=== PATIENT | female | born 1960 | race Two or more races ===

== ENCOUNTER → 2018-02-09 | Emergency (ER) | payer OTHER ==
[~2018-02-09] VITALS: Ht 149.9 cm; Wt 93.9 kg
[~2018-02-09] MED LIST: AVALIDE 150-12.1 TA1; AVAPRO75 MG; CIPRO500 MG PO; CYCLOBENZAPRINE10 MG PO; DICLOFENAC POTA50 MG PO; DIOVAN HCT 160-1 TA1; KETO10TA2 PO; MEDROLPACK PO; METRONIDAZOLE500 MG PO; NORFLEX100MG PO; OSEL75CA PO; PREMARIN1.25 MG; PROTONIX40 MG PO; SYNTHROID300 MCG; SYNTHROID50 MCG
== END | disposition home or self-care (01) ==
LOC: ER 11:39
DX: S80.01XA Contusion of right knee, initial encounter (principal); S40.011A Contusion of right shoulder, initial encounter; S30.0XXA Contusion of lower back and pelvis, initial encounter; W18.39XA Other fall on same level, initial encounter; Y93.89 Activity, other specified; Y92.098 Other place in other non-institutional residence as the place of occurrence of the external cause; Y99.8 Other external cause status

== ENCOUNTER 2018-06-27 09:10 | Emergency (ER) | payer OTHER ==
[~2018-06-27] VITALS: Ht 154.9 cm; Wt 95.3 kg
== END 2018-06-27 13:15 | disposition home or self-care (01) ==
LOC: ER 09:10
DX: R07.89 Other chest pain (principal); I10 Essential (primary) hypertension; R51 Headache

== ENCOUNTER 2018-11-28 01:44 | Emergency (ER) | payer OTHER ==
[~2018-11-28] VITALS: Ht 154.9 cm; Wt 97.5 kg
[2018-11-28] MEDS ORDERED: INTESTINEX680 M1 PO (08:57)
[2018-11-28] MEDS ORDERED: ZANTAC150 MG PO (08:57)
== END 2018-11-28 10:33 | disposition home or self-care (01) ==
LOC: ER 01:44
DX: K52.89 Other specified noninfective gastroenteritis and colitis (principal)

== ENCOUNTER 2020-07-22 18:24 | Emergency (ER) | payer OTHER ==
[~2020-07-22] VITALS: Ht 154.9 cm; Wt 101.6 kg
[~2020-07-22 18:24] MED LIST changes: +INTESTINEX680 M1 PO; +ZANTAC150 MG PO
[2020-07-22] MEDS ORDERED: BENADRYL25 MG (19:09)
== END 2020-07-22 21:23 | disposition home or self-care (01) ==
LOC: ER 18:24
DX: R51 Headache (principal); R07.89 Other chest pain

== ENCOUNTER 2021-05-07 16:15 | Emergency (ER) | payer OTHER ==
[~2021-05-07] VITALS: Ht 157.5 cm; Wt 93.0 kg
[~2021-05-07 16:15] MED LIST changes: +BENADRYL25 MG
[2021-05-07] MEDS ORDERED: AMLODIPINE BESYL5 MG PO (18:02)
== END 2021-05-07 20:11 | disposition home or self-care (01) ==
LOC: ER 16:15
DX: N39.0 Urinary tract infection, site not specified (principal); E11.649 Type 2 diabetes mellitus with hypoglycemia without coma

== ENCOUNTER 2021-10-28 07:30 | Inpatient (IN) | payer OTHER ==
[~2021-10-28] VITALS: Ht 154.9 cm; Wt 97.5 kg
[~2021-10-28 07:30] MED LIST changes: +AMLODIPINE BESYL5 MG PO
[2021-10-28] MEDS ORDERED: ALBUTERO (10:16)
[2021-11-03] MEDS ORDERED: IRBESARTAN300 MG (09:13)
[2021-11-03] MEDS ORDERED: ALLERGY RELIEF10 MG (09:13)
[2021-11-03] MEDS ORDERED: HYDROCHLOROTH12.5 MG (09:13)
[2021-11-03] MEDS ORDERED: ALBUTEROL2.5 MG/3 M (09:14)
== END 2021-11-04 16:38 | DRG 470 ==
LOC: O/R 11-02 05:46 → SURG 11-02 05:46 → SURH 11-02 07:30 → SURG 11-02 14:00
PROVIDERS: ADMIT Orthopaedic Surgery; ATTEND Orthopaedic Surgery
PROC: 0SRC0J9 Replacement of Right Knee Joint with Synthetic Substitute, Cemented, Open Approach (ICD-10-PCS; principal; 2021-11-02 10:15)
DX: M17.11 Unilateral primary osteoarthritis, right knee (principal); D62 Acute posthemorrhagic anemia; I10 Essential (primary) hypertension; E03.9 Hypothyroidism, unspecified; G47.33 Obstructive sleep apnea (adult) (pediatric)

== ENCOUNTER 2025-05-05 08:12 | Outpatient (CLI) | payer OTHER ==
[~2025-05-05 08:12] MED LIST changes: +ALBUTERO; +ALBUTEROL2.5 MG/3 M; +ALLERGY RELIEF10 MG; +HYDROCHLOROTH12.5 MG; +IRBESARTAN300 MG; +TRAMADOL HCL50 MG PO
== END 2025-05-05 08:18 | disposition home or self-care (01) ==
LOC: SONOGRAMA 08:12
PROVIDERS: ATTEND Physical Medicine & Rehabilitation
DX: M65.341 Trigger finger, right ring finger (principal); G56.01 Carpal tunnel syndrome, right upper limb; M25.551 Pain in right hip; M25.561 Pain in right knee; Z96.651 Presence of right artificial knee joint

== ENCOUNTER 2025-05-08 09:40 | Outpatient (CLI) | payer OTHER | END 2025-05-08 09:43 | disposition home or self-care (01) | LOC: SONOGRAMA 09:40 | PROVIDERS: ATTEND Physical Medicine & Rehabilitation | DX: M25.561 Pain in right knee (principal); Z96.651 Presence of right artificial knee joint ==

== ENCOUNTER 2025-07-15 08:38 | Outpatient (CLI) | payer OTHER | END 2025-07-15 08:56 | disposition home or self-care (01) | LOC: TOM 08:38 | PROVIDERS: ATTEND Internal Medicine Gastroenterology | DX: R10.32 Left lower quadrant pain (principal); K57.30 Diverticulosis of large intestine without perforation or abscess without bleeding | CPT/HCPCS: 74177; Q9965 ==

== ENCOUNTER → 2025-07-17 10:47 | Outpatient (CLI) | payer OTHER | END | disposition home or self-care (01) | LOC: NUCLEAR 10:47 | PROVIDERS: ATTEND Internal Medicine Cardiovascular Disease | DX: I10 Essential (primary) hypertension (principal) ==

== ENCOUNTER 2025-10-01 07:00 | Day surgery (SDC) | payer OTHER ==
[2025-09-24 09:08] VITALS: BP 170/80
[2025-09-24 09:19] LABS: URINE APPEARANCE Clear; URINE BILIRRUBIN Negative (NEGATIVE); URINE BLOOD Negative; URINE COLOR Yellow; URINE GLUCOSE Negative (NEGATIVE); URINE KETONE Negative (NEGATIVE); URINE LEUKOCYTE Negative; URINE NITRATE Negative; URINE PROTEIN Negative (NEGATIVE); URINE UROBILINOGEN 0.2 E.U./dl
[2025-09-24 09:20] LABS: URINE BACTERIA 11.9 uL (0.0-1933); URINE EPITHELIAL CELLS 6.6 uL (0.0-38.8); URINE RBC 6.3 uL (0.0-20.8); URINE WBC 2.3 uL (0.0-23.2)
[2025-09-24 09:26] LABS: URINE CAST 0.00 uL (0.0-1.40)
[2025-09-24 09:39] LABS: BASO % 1.0 % (0.1-1.2); EOS # 0.34 (0.04-0.54); EOS % 4.9 % (0.7-7.0); LYMPH # 2.79 (1.18-3.74); LYMPH % 40.6 % (19.3-53.1); MEAN PLATELET VOLUME 10.10 fl (9.4-12.4); MONO # 0.58 (0.24-0.82); MONO % 8.4 % (4.7-12.5); NEUT # 3.08 (1.56-6.13); NEUT % 44.8 % (34.0-71.1); RED CELL DISTRIBUTION WIDTH 13.8 % (11.6-14.4)
[2025-09-24 09:48] LABS: INR 1.03
[2025-09-24 10:28] LABS: ALT/SGPT 21.0 U/L (12-78); AST/SGOT 12.0 U/L (15-37); BILIRUBIN TOTAL 0.7 mg/dL (0.3-1.2); BUN CREA RATIO 21.0 (7.0-25.0); CREATININE SERUM 0.86 mg/dL (0.55-1.02); GFR 66.22; GLOBULINA 3.0 G/DL (2.4-3.5); GLUCOSE FASTING 101.0 mg/dL (65-100); OSMOLALITY SERUM 287.0 MOSM/KG (275-295)
[~2025-10-01] VITALS: Ht 154.9 cm; Wt 93.0 kg
[~2025-10-01 07:00] MED LIST changes: +ECOTRIN81 MG PO; +ROSUVASTATIN CA20 MG PO; +TIZANIDINE HCL4 MG PO; +TOPROL XL100 M1 PO
[2025-10-01] MEDS ORDERED: CEFAZOLIN SODIUM 1,000 MG VIAL ONE (09:00)
[2025-10-01] MEDS ORDERED: BUPIVACAINE HCL 30 ML VIAL IJ ONE (10:45)
[2025-10-01] MEDS ORDERED: LIDOCAINE HCL 1% 10ML VIAL IJ ONE (10:45)
[2025-10-01] MEDS ORDERED: CITRIC ACID/SODIUM CITRATE 30 ML BLIST.PACK PO ONE (10:45)
[2025-10-01] MEDS ORDERED: ISOPROPYL ALCOHOL 30 ML OUNCE TOP ONE (10:45)
[2025-10-02] MEDS ORDERED: CEFAZOLIN SODIUM 1,000 MG VIAL IV ONE (15:30)
== END 2025-10-01 15:05 | disposition home or self-care (01) ==
LOC: CIR.AMB 07:00
PROVIDERS: ATTEND Surgery Surgery of the Hand
DX: M65.841 Other synovitis and tenosynovitis, right hand (principal); M67.843 Other specified disorders of tendon, right hand; Z91.013 Allergy to seafood; Z91.040 Latex allergy status; Z91.041 Radiographic dye allergy status